=== PATIENT | female | born 1975 | race Caucasian/White ===

== ENCOUNTER → 2017-02-10 | Outpatient (CLI) | payer OTHER ==
[~2017-02-10] MED LIST: CARI350T PO; CETI-115 PO; FLUT9.9S INH; TRAM50TA4 PO
--- NOTE | 2017-02-10 11:16 | DI ---
Indication: ITS.REASON: E04.9 THYROID ENLARGEMENT PROCEDURE: US THYROID: Encounter: Subsequent Comparison: Thyroid ultrasound dated July 24, 2015 Technique: Grayscale and color Doppler sonographic imaging of the thyroid gland was performed. Findings: Heterogeneous thyroid gland is again noted with increased vascularity. Right side shows an isoechoic superior pole nodule measuring 1.3 cm in diameter. This is stable in size and appearance. Prominent nodule in the thyroid isthmus measuring 1.3 x 0.6 x 1.2 cm in size is also stable. Right lobe measures 5.1 x 2 x 1.7 cm. Left lobe measures 4.9 x 1.9 x 1.7 cm. Impression: Multinodular thyroid gland with evidence of thyroiditis. No enlarging nodules seen. .
== END ==
LOC: IMA 07:32
PROVIDERS: ATTEND Nurse Practitioner
DX: E04.2 Nontoxic multinodular goiter (principal); E06.9 Thyroiditis, unspecified